=== PATIENT | female | born 1940 | race Caucasian/White ===

== ENCOUNTER 2017-05-20 08:04 | Outpatient (CLI) | payer MEDICARE | END 2017-05-20 08:05 | disposition home or self-care (01) | LOC: BICMAMMO 08:04 | PROVIDERS: ATTEND Internal Medicine Hematology & Oncology | DX: Z15.01 Genetic susceptibility to malignant neoplasm of breast (principal); Z80.3 Family history of malignant neoplasm of breast | CPT/HCPCS: G0204; G0279; 77066 ==

== ENCOUNTER 2017-11-28 12:26 | Outpatient (CLI) | payer MEDICARE, BC ==
[~2017-11-28 12:26] MED LIST: Gadobenate Dimeglumine 529 MG/1 ML (20ML VIAL) ONE
== END 2017-11-28 12:27 | disposition home or self-care (01) ==
LOC: BICMRI 12:26
PROVIDERS: ATTEND Orthopaedic Surgery
DX: R22.42 Localized swelling, mass and lump, left lower limb (principal); Z15.01 Genetic susceptibility to malignant neoplasm of breast
CPT/HCPCS: 73723; C8908; A9579

== ENCOUNTER 2018-06-27 09:18 | Outpatient (CLI) | payer MEDICARE, BC | END 2018-06-27 09:19 | disposition home or self-care (01) | LOC: BICMAMMO 09:18 | PROVIDERS: ATTEND Internal Medicine Hematology & Oncology | DX: Z15.01 Genetic susceptibility to malignant neoplasm of breast (principal); L90.5 Scar conditions and fibrosis of skin; R92.1 Mammographic calcification found on diagnostic imaging of breast; Z80.3 Family history of malignant neoplasm of breast | CPT/HCPCS: 77066; G0279 ==

== ENCOUNTER 2018-11-20 12:01 | Outpatient (CLI) | payer MEDICARE, BC ==
--- NOTE | 2018-11-20 14:41 | MRI ---
BILATERAL BREAST MRI WITH AND WITHOUT IV CONTRAST WITH 3D POST PROCESSING ON AN INDEPENDENT WORK STAT ION: HISTORY: BRCA mutation detection with genetic susceptibility to malignant neoplasm of female breast. COMPARISON: 11/28/2017 FINDINGS: The breasts are predominantly fatty replaced bilaterally. Minimal background parenchymal enhancement is again seen. The right nipple is surgically absent. No suspicious mass or abnormal post contrast enhancement is seen. No axillary or internal mammary lymphadenopathy is seen. IMPRESSION: BI-RADS 1-Negative. POS: OFF
== END 2018-11-20 12:02 | disposition home or self-care (01) ==
LOC: BICMRI 12:01
PROVIDERS: ATTEND Internal Medicine Hematology & Oncology
DX: Z15.01 Genetic susceptibility to malignant neoplasm of breast (principal)
CPT/HCPCS: 82565; C8908; A9577

== ENCOUNTER 2019-04-15 12:47 | Outpatient (CLI) | payer MEDICARE, BC ==
--- NOTE | 2019-04-15 15:56 | NM ---
HEPATOBILIARY SCAN: HISTORY:Generalized abdominal pain, normal abdominal ultrasound of 02/19/2019 RADIOPHARMACEUTICAL: 5.3 mCi Technetium 99m Mebrofenin injected intravenously FINDINGS: There is normal tracer extraction by the liver with normal excretion into the biliary tracts and smal l bowel loops and normal filling of the gallbladder. The calculated gallbladder ejection fraction following an oral fatty meal measures 59%. IMPRESSION:Normal exam.
== END 2019-04-15 12:48 | disposition home or self-care (01) ==
LOC: NM 12:47
PROVIDERS: ATTEND Internal Medicine
DX: R10.9 Unspecified abdominal pain (principal)
CPT/HCPCS: 78227; A9537

== ENCOUNTER 2019-07-01 10:09 | Outpatient (CLI) | payer MEDICARE, BC ==
--- NOTE | 2019-07-01 10:38 | MMO ---
Bilateral MAMMO Bilat Diag DDI+JO. CLINICAL HISTORY: Patient is 78 years old and is seen for diagnostic exam. The patient has the following family history of breast cancer: mother, at age 40, malignant (generic). The patient has no personal history of cancer. The patient has a history of right Excisional Biopsy in 2012 - benign - REMOVED NIPPLE, left Excisional Biopsy in January, - fat necrosis and left Excisional Biopsy in 2006. VIEWS: The views performed were: bilateral craniocaudal with tomosynthesis; bilateral mediolateral oblique with tomosynthesis; and bilateral mediolateral with tomosynthesis. FILMS COMPARED: The present examination has been compared to prior imaging studies performed at [facility] on 05/20/2017, 06/27/2018 and 11/20/2018, and at [facility] on 05/30/2016. This study has been interpreted with the assistance of computer-aided detection. MAMMOGRAM FINDINGS: There are scattered fibroglandular densities. There are stable benign appearing calcifications seen in both breasts. There are no suspicious masses, suspicious calcifications, or new areas of architectural distortion. IMPRESSION: THERE IS NO MAMMOGRAPHIC EVIDENCE OF MALIGNANCY. A ROUTINE FOLLOW-UP MAMMOGRAM IN 1 YEAR IS RECOMMENDED. THE RESULTS OF THIS EXAM WERE SENT TO THE PATIENT. ACR BI-RADS Category 2 - Benign finding MAMMOGRAPHY NOTE: 1. A negative mammogram report should not delay a biopsy if a dominant of clinically suspicious mass is present. 2. Approximately 10% to 15% of breast cancers are not detected by mammography. 3. Adenosis and dense breasts may obscure an underlying neoplasm. Reported by: CARMINA CHURCH MD Electonically Signed: [id number]
== END 2019-07-01 10:10 | disposition home or self-care (01) ==
LOC: BICMAMMO 10:09
PROVIDERS: ATTEND Internal Medicine Hematology & Oncology
DX: Z15.01 Genetic susceptibility to malignant neoplasm of breast (principal)
CPT/HCPCS: 77066; G0279

== ENCOUNTER 2020-02-04 08:48 | Outpatient (CLI) | payer MEDICARE, BC ==
--- NOTE | 2020-02-04 10:41 | MRI ---
EXAM: MRI of the breasts without and with contrast HISTORY: BRCA2 gene susceptibility for breast cancer COMPARISON: 11/20/2018 TECHNIQUE: Multiplanar multisequence MR images were obtained of the breasts without and with IV contr ast. 3-D MIP reformats and contrast enhancement curves were generated on a [employer] workstation. FINDINGS: Predominantly fatty replaced breast parenchyma is seen. Minimal background parenchymal enhancement is seen. No suspicious mass or abnormal enhancement is seen within either breast. No axillary adenopathy is seen. No internal mammary lymph nodes are identified. The visualized liver is unremarkable. The visualized bones are unremarkable. IMPRESSION: BI-RADS Category 2-benign findings. Annual screening mammography is recommended.
== END 2020-02-04 08:49 | disposition home or self-care (01) ==
LOC: BICMRI 08:48
PROVIDERS: ATTEND Internal Medicine Hematology & Oncology
DX: Z15.01 Genetic susceptibility to malignant neoplasm of breast (principal)
CPT/HCPCS: 82565; C8908; A9577

== ENCOUNTER 2020-07-04 09:06 | Outpatient (CLI) | payer MEDICARE, BC ==
--- NOTE | 2020-07-04 09:41 | MMO ---
Bilateral MAMMO Bilat Diag DDI+JO. CLINICAL HISTORY: Patient is 79 years old and is seen for diagnostic exam. The patient has the following family history of breast cancer: mother, at age 40, malignant (generic). The patient has no personal history of cancer. The patient has a history of right Excisional Biopsy in 2012 - benign - REMOVED NIPPLE, left Excisional Biopsy in January, - fat necrosis and left Excisional Biopsy in 2006. VIEWS: The views performed were: bilateral craniocaudal with tomosynthesis; bilateral mediolateral oblique with tomosynthesis; and bilateral mediolateral with tomosynthesis. FILMS COMPARED: The present examination has been compared to prior imaging studies performed at [facility] on 11/20/2018, 07/01/2019, 02/04/2020 and 07/04/2020. This study has been interpreted with the assistance of computer-aided detection. MAMMOGRAM FINDINGS: There are scattered fibroglandular densities. Benign calcifications are noted bilaterally. US of left outer breast shows no abnormality. There are no suspicious masses, suspicious calcifications, or new areas of architectural distortion. IMPRESSION: THERE IS NO MAMMOGRAPHIC EVIDENCE OF MALIGNANCY. A ROUTINE FOLLOW-UP MAMMOGRAM IN 1 YEAR IS RECOMMENDED. THE RESULTS OF THIS EXAM WERE SENT TO THE PATIENT. ACR BI-RADS Category 2 - Benign finding MAMMOGRAPHY NOTE: 1. A negative mammogram report should not delay a biopsy if a dominant of clinically suspicious mass is present. 2. Approximately 10% to 15% of breast cancers are not detected by mammography. 3. Adenosis and dense breasts may obscure an underlying neoplasm. Reported by: ANABEL VENTURA MD Electonically Signed: [id number]
--- NOTE | 2020-07-04 11:06 | ULT ---
LIMITED LEFT BREAST ULTRASOUND: Date: 07/04/2020 HISTORY: BRCA positive, left upper outer breast itching. FINDINGS: Sonographic evaluation of the left outer breast from the 12 through 6 o'clock positions demonstrates no abnormality. Correlation is made with mammogram of same date. IMPRESSION: BI-RADS Category 2 - Benign findings. Return to annual mammographic screening. POS: OFF
== END 2020-07-04 09:07 | disposition home or self-care (01) ==
LOC: BICMAMMO 09:06
PROVIDERS: ATTEND Internal Medicine Hematology & Oncology
DX: Z15.01 Genetic susceptibility to malignant neoplasm of breast (principal); N64.59 Other signs and symptoms in breast
CPT/HCPCS: 76642; 77066; G0279

== ENCOUNTER 2021-07-05 09:27 | Outpatient (CLI) | payer MEDICARE, BC | END 2021-07-05 09:28 | disposition home or self-care (01) | LOC: BICMAMMO 09:27 | PROVIDERS: ATTEND Internal Medicine Hematology & Oncology | DX: Z15.01 Genetic susceptibility to malignant neoplasm of breast (principal); Z85.3 Personal history of malignant neoplasm of breast | CPT/HCPCS: 77066; G0279 ==